=== PATIENT | female | born 1960 | race Caucasian/White ===

== ENCOUNTER 2016-07-28 08:39 | Inpatient (IN) | payer OTHER ==
[2016-07-15 13:42] LABS: MEAN CORPUS HGB CONC 32.4 g/dL (32.0-36.0); MEAN CORPUSCULAR VOLUME 83.3 fL (80-100); MEAN PLATELET VOLUME 9.3 fL (9.2-13.0); PLATELET COUNT 380 10/3/uL (150-400); RBC DISTRIBUTION WIDTH 14.9 % (12.0-16.0); WHITE BLOOD CELLS 9.8 10/3/uL (4.5-10.5)
[2016-07-15 13:45] LABS: HEMATOCRIT 39.8 % (36.0-48.0); HEMOGLOBIN 12.9 g/dL (12.0-16.0); RED CELL COUNT 4.78 10/6/uL (4.0-5.6)
[2016-07-15 14:28] LABS: SED RATE 29 MM/HR (0-20)
--- NOTE | ~2016-07-28 | DS ---
Discharge Summary [place] [id number] [facility] [place]. [address] NAME: JOSE RAUL GIRON : 58 STATUS : DIS IN PAT#: [id number] AGE: 55 ADM/REG DATE : 07/28/16 MR#: [id number] REPORT SERV DATE: 08/19/16 DICTATED BY: BRYAN HAGAN DATE: 08/18/16 REPORT STATUS : Draft TRANSCRIBED BY: YANELIS DATE: 08/18/16 Data Collection from hospitalization DISCHARGE DIAGNOSES: 1. Recurrent disc herniation and severe disk disease, L4 through S1. 2. Right-sided lumbar radiculopathy. 3. Diabetes. 4. Anxiety and depression. 5. Hypothyroidism. 6. Migraines. CONSULTATIONS: Eric Velasco M.D.. PROCEDURES PERFORMED: 1. Anterior approach retroperitoneal exposure of L4-L5, L5-S1 lumbosacral body on 07/28/2016. 2. First stage - L4-L5 and L5-S1 anterior lumbar interbody fusion; placement of Medtronic PEEK cage construct with screws passing through the PEEK cage into the L4-L5 and L5-S1 vertebral bodies; use of allograft bone matrix, neuromonitoring, bone morphogenic protein. Second stage - L4 through S1 open laminectomy and bilateral foraminotomies; L4 through S1 posterolateral fusion bilaterally; L4 through S1 posterior segmental spinal instrumentation using Medtronic pedicle screws; use of local morcellized autograft and allograft bone matrix, neuromonitoring, intraoperative O-arm CT scan with computer navigation on 07/28/2016. PATHOLOGY: Lumbar spine repair - fragmented bone cartilage and soft tissue. No evidence of an infectious or neoplastic process. MEDICATIONS: Artificial Tears instilled in the affected eye every hour while awake; Flexeril 10 mg twice a day; Colace 100 mg twice a day; erythromycin, apply to the affected eye every six hours as instructed; Neurontin 300 mg three times a day; Synthroid 112 mcg daily; Protonix 40 mg daily; Zoloft 200 mg daily; trazodone 150 mg at bedtime; Klonopin 1 mg at bedtime; Dulera two puffs via inhaler twice a day; Tylenol 650 mg every four hours as needed; Mylanta 30 mL as needed; Fioricet one to two tablets every eight hours as needed; Dulcolax 15 mg as needed; Valium 2 mg every four hours as needed, milk of magnesia 30 mL twice a day as needed; Percocet one tablet every four hours as needed; Phenergan 25 mg every six hours as needed; vitamin D 62806 units on Sundays; Breo Ellipta one puff via inhaler daily; and Flexeril 10 mg one tablet every eight hours as needed for spasm. CONDITION AT DISCHARGE: Stable. DISPOSITION: The patient was discharged to [facility] on a regular diet with activities as instructed. HOSPITAL COURSE: This is a 55-year-old female who had intractable back and lower extremity pain that had failed multiple attempts at conservative treatment. The patient had recurrent disk herniation and severe disk disease at L4 through S1 and right-sided lumbar radiculopathy. Treatment options were discussed and it was elected to proceed with surgical Discharge Summary [address] [address] NAME: JOSE RAUL GIRON : 58 STATUS : DIS IN PAT#: [id number] AGE: 55 ADM/REG DATE : 07/28/16 MR#: [id number] REPORT SERV DATE: 08/19/16 DICTATED BY: BRYAN HAGAN DATE: 08/18/16 REPORT STATUS : Draft TRANSCRIBED BY: YANELIS DATE: 08/18/16 intervention. She was admitted to the hospital at this time for further evaluation and treatment. Upon admission, she was taken to the operating room where she underwent the above-mentioned procedure by myself and Dr. Eric Velasco. She tolerated this well, and there were no complications. On postop day #1, she was evaluated by Physical Therapy. Her pain was controlled. She was stable neurologically. She had no headaches. The Conde catheter and HOME CARE LIAISON were discontinued. On postop day #2, she was doing well. She was passing some flatus. Her abdomen was soft. The drain was removed. Over the next couple of days, she was up sitting in a chair. She complained of mild tenderness to the anterior incisions site. She was instructed to paint the abdominal incision with Betadine daily. Discharge planning was performed. On 08/01/2016, she was alert and cooperative. She had no edema. Discharge instructions were given. Due to her improved and stable condition, she was discharged to [facility] with the above-stated instructions. Information collected by: Priscila Nunez I submit the above information as my discharge summary. CAIN/SHONDAL Bryan Hagan DO / [id number] CC: Bryan Hagan DO [facility]
--- NOTE | ~2016-07-28 | OP ---
Record Of Operation [facility] [address] [place]. [address] NAME: JOSE RAUL GIRON : 58 STATUS : ADM IN PAT#: [id number] AGE: 55 ADM/REG DATE : 07/28/16 MR#: [id number] REPORT SERV DATE: 07/28/16 DICTATED BY: ERIC BURCIAGA DATE: 07/28/16 REPORT STATUS : Draft TRANSCRIBED BY: MODL DATE: 07/28/16 DATE OF PROCEDURE: 07/28/2016 PREOPERATIVE DIAGNOSIS: Per Dr. Hagan. POSTOPERATIVE DIAGNOSIS: Per Dr. Hagan. SURGERY PERFORMED: Anterior approach retroperitoneal exposure of L4-5, 5-1 lumbosacral bodies. SURGEON: Eric Burciaga M.D. RADIO MECHANIC APPRENTICE: Nancy Nagy NP. DESCRIPTION OF PROCEDURE: The patient was placed under general endotracheal anesthesia. The abdomen was prepped and draped in a sterile fashion. An incision was made left of the midline beginning just at or above the umbilicus and carried down to the pubis. This was carried through skin and subcutaneous tissue. Anterior rectus fascia opened the left of the midline. The rectus muscle retracted laterally. Retroperitoneal space was entered using blunt dissection. Retroperitoneal contents were then retracted over to the right. Wet laparotomy sponges were placed over the retroperitoneal contents and Bookwalter retractor was used for the retraction. The L5-S1 space was exposed using the pusher. The sacral vessels doubly ligated with silk and divided. Continued use of the pusher and some with the cautery was done until the 5-1 space was fully exposed. The 4-5 space was exposed left of the iliac vessels. The vein was bluntly dissected, was triply ligated with silk and 1 Prolene suture and then divided. This enabled the iliac vein to be retracted over to the right. The L4-5 space was then exposed using blunt dissection. A needle placed into the position and this showed to be the appropriate level. The procedure turned over to Dr. Hagan. After he completed both areas of orthopedic procedure the area was visualized, hemostasis was achieved. Retroperitoneal contents returned to the natural position. The abdomen closed using #1 running PDS suture. A small catheter placed beneath the fascia for postoperative Marcaine infusion. Subcutaneous tissue closed with 3-0 Vicryl, skin closed with 4-0 Monocryl subcuticular suture. ESTIMATED BLOOD LOSS: 300 mL. COUNTS: The sponge and needle count correct x3. Fluoroscopy of the abdomen revealing no laparotomy sponges or instrumentation noted. MG/MODL Eric Burciaga M.D. Record Of Operation [address] [address] NAME: JOSE RAUL GIRON : 58 STATUS : ADM IN PAT#: [id number] AGE: 55 ADM/REG DATE : 07/28/16 MR#: [id number] REPORT SERV DATE: 07/28/16 DICTATED BY: ERIC BURCIAGA DATE: 07/28/16 REPORT STATUS : Draft TRANSCRIBED BY: YANELIS DATE: 07/28/16 / [id number] CC: Bryan Hagan, DO
--- NOTE | ~2016-07-28 | OP ---
Record Of Operation [facility] [address] [place]. [address] NAME: JOSE RAUL GIRON : 58 STATUS : ADM IN PAT#: [id number] AGE: 55 ADM/REG DATE : 07/28/16 MR#: [id number] REPORT SERV DATE: 07/28/16 DICTATED BY: BRYAN HAGAN DATE: 07/28/16 REPORT STATUS : Draft TRANSCRIBED BY: MODL DATE: 07/28/16 DATE OF PROCEDURE: 07/28/2016 PREOPERATIVE DIAGNOSES: Recurrent disk herniation and severe disk disease, L4 through S1; right-sided lumbar radiculopathy. POSTOPERATIVE DIAGNOSES: Recurrent disk herniation and severe disk disease, L4 through S1; right-sided lumbar radiculopathy. PROCEDURE: Two-stage procedure. FIRST STAGE: 1. L4-5 and L5-S1 anterior lumbar interbody fusion. 2. Placement of Medtronic PEEK cage construct with screws passing through the PEEK cage into the L4-5 and L5-S1 vertebral bodies. 3. Use of allograft bone matrix. 4. Neuromonitoring. 5. Bone morphogenic protein. SURGEONS: Surgeons for first stage of the procedure, Bryan Hagan DO and Eric Velasco M.D. from Vascular Surgery. He will dictate the approach and closure separately. SECOND STAGE OF THE PROCEDURE: 1. L4 through S1 open laminectomy and bilateral foraminotomies. 2. L4 through S1 posterolateral fusion bilaterally. 3. L4 through S1 posterior segmental spinal instrumentation using Medtronic pedicle screws. 4. Use of local morcellized autograft and allograft bone matrix, neuromonitoring, intraoperative O-arm CT scan with computer navigation. SURGEON: Bryan Hagan DO, on the second stage alone. ANESTHESIA: General. ESTIMATED BLOOD LOSS: 300 mL. COMPLICATIONS: Incidental durotomy. INDICATIONS: The patient is a pleasant 55-year-old with intractable back and lower extremity pain and paresthesias. Failed multiple attempts at conservative treatment. After discussion of risks and benefits, elected to proceed with surgery. PROCEDURE IN DETAIL: I identified the patient in the holding area. Consent was obtained. Went to the operating room. Underwent general anesthesia with endotracheal intubation. Prepped and draped in the usual sterile fashion. Operative safety pause was performed, then we proceeded. Dr. Velasco from Vascular Surgery performed the initial approach for the Record Of Operation [place] [id number] [place]. [address] NAME: JOSE RAUL GIRON : 58 STATUS : ADM IN PAT#: [id number] AGE: 55 ADM/REG DATE : 07/28/16 MR#: [id number] REPORT SERV DATE: 07/28/16 DICTATED BY: BRYAN HAGAN DATE: 07/28/16 REPORT STATUS : Draft TRANSCRIBED BY: MODL DATE: 07/28/16 anterior portion to the L4-S1 level. Spinal needle was placed at L4-5 and L5-S1 to verify operative level with lateral fluoroscopic image. A knife was used to perform an annulotomy at the L4-5 level. The disk space was prepared with a Aparicio elevator, curettes, and a rasp. A trial spacer was implanted and then Medtronic PEEK cage screw construct was placed at L4-5 with allograft bone matrix and bone morphogenic protein. Screws were placed through the cage and into the L4 and L5 vertebral bodies. Cover plate was applied. This was repeated again at the L5-S1 level. Closure performed by Dr. Velasco. Dressings applied. The patient turned to the prone position, prepped and draped in the usual sterile fashion. Operative safety pause was performed, and then we proceeded again. Midline longitudinal incision was made at L4-S1 taking down through the fascial layer. Paraspinous muscles elevated to the tips of transverse processes. Self-retaining retractors were placed. The O-arm registration frame was placed on spinous process. O-arm was brought in for intraoperative CT scan. Computer registration materials verified. Under computer guidance, L4-S1 pedicle screws were placed, L4 through S1. O-arm was brought back in to verify good placement of instrumentation. Rongeur was used to remove spinous process and underlying lamina at L4-S1. Kerrison removed remaining lamina and underlying ligamentum flavum, performed foraminotomies at L4-S1, freeing the L4-S1 nerve roots bilaterally. It did appear that there was a previous durotomy as there was minimal coverage over the dural sac at the L4-5 level, this was covered at the end of the case with Tisseel sealant. Rods were placed over the screws from L4-S1. Set screws were placed and final tightened. Locking mechanisms engaged. High- speed decorticating ric was used to decorticate the remaining bony surfaces posteriorly L4 through S1. Irrigation was performed. Hemostasis was achieved. Local morcellized autograft and allograft bone matrix packed over the decorticated surfaces, L4 through S1 bilaterally. Tisseel sealant placed over the dura. Subfascial drain placed. A gram of vancomycin powder sprinkled over the surgical wound. Layered closure performed. Sterile dressings applied. The patient was awoken and extubated, and taken to recovery room in stable condition. OPERATIVE FINDINGS: L4 to S1 disk disease and stenosis. No sustained neuromonitoring alerts and what appeared to be a prior durotomy covered with Tisseel sealant. JCE/MODL Bryan Hagan DO / [id number] CC: Bryan Hagan DO
--- NOTE | ~2016-07-28 | PREOPHP ---
PreOp History and Physical [place] [address] [place]. [address] NAME: JOSE RAUL GIRON : 58 STATUS : ADM IN PAT#: [id number] AGE: 55 ADM/REG DATE : 07/28/16 MR#: [id number] REPORT SERV DATE: 07/28/16 DICTATED BY: CHUYITA VALDEZ DATE: 07/28/16 REPORT STATUS : Draft TRANSCRIBED BY: YANELIS DATE: 07/28/16 CHIEF COMPLAINT: Back pain and right greater than left lower extremity pain and paresthesias. HISTORY OF PRESENT ILLNESS: The patient is a 55-year-old with intractable back and lower extremity pain, failed multiple attempts at conservative treatment. After discussion of risks and benefits, elected to proceed with surgical intervention. REVIEW OF SYSTEMS: She denies chest pain, shortness of breath, and bowel or bladder changes. ALLERGIES: SULFA. HOME MEDICATIONS: BuSpar, Fioricet, Risperdal, clonazepam, Flexeril, Synthroid, metformin, Neurontin, [place], pantoprazole, Phenergan, Protonix, Synthroid, trazodone, Voltaren gel, Zoloft. FAMILY HISTORY: Noncontributory. PAST MEDICAL HISTORY: Diabetes, depression, anxiety, hypothyroidism, migraines. PHYSICAL EXAMINATION: VITAL SIGNS: Height 5 feet 6 inches, weight 254, BMI 41. GENERAL: The patient is healthy appearing. No acute distress. PSYCH: Alert and oriented x3. Normal mood and affect. Gait is antalgic. VASCULAR: No extremity swelling. SPINE: Decreased lumbar motion. HEART: Regular rate and rhythm. LUNGS: Clear to auscultation bilaterally. ABDOMEN: Soft, nontender, nondistended with good bowel sounds. BREASTS AND RECTAL: Both deferred. NEUROLOGIC: Strength in the lower extremities remains intact with 5/5 strength with the exception of 4/5 for the right hip flexors and quadriceps. IMAGING: I have reviewed the MRI scan of the lumbar spine. The patient does have recurrent L4-S1 disk herniations, L4-S1 disk disease and stenosis. Prior diskectomy in 03/2011. ASSESSMENT: Recurrent disk herniation, right side L4 through S1, L4-S1 disk disease and stenosis, lumbar radiculopathy, failed conservative treatment to include physical therapy, epidural injections, medication and pain management. PLAN: The patient presents today for surgical intervention. Consent was obtained. All questions were answered. Ready to proceed with surgery. JCE/MODL PreOp History and Physical [address] [address] NAME: JOSE RAUL GIRON : 58 STATUS : ADM IN [facility]#: [id number] AGE: 55 ADM/REG DATE : 07/28/16 MR#: [id number] REPORT SERV DATE: 07/28/16 DICTATED BY: CHUYITA VALDEZ DATE: 07/28/16 REPORT STATUS : Draft TRANSCRIBED BY: YANELIS DATE: 07/28/16 Chuyita Valdez DO / [id number] CC: Chuyita Valdez DO
[~2016-07-28 08:39] MED LIST: AMIT25 PO; BREO ELLIPTA INH; EZFE 200200 MG PO; FLEX PO; FORTAMET500 MG PO; KLONO1 PO; LEVAQUIN750 MG PO; LEVOTHROID88 MCG PO; MAXALT10 MG PO; NEUR300 PO; NORCO1 TAB PO; P10; PR25 PO; PRAVAC PO; PROAIR HFA INH; PROTONIX PO; PROTONIXIV IV; SOMATAB PO; SYN125 PO; TOPAMAX25 PO; TRAZODONE150 MG PO; VITD PO; ZOFRANODT8 PO; ZOL100 PO
[2016-07-28 16:55] LABS: BASOPHILS 0.1 %; BASOPHILS ABSOLUTE 0.02 10/3/uL (0.0-0.16); EOSINOPHILS 0 %; EOSINOPHILS ABSOLUTE 0.01 10/3/uL (0.0-0.53); HEMOGLOBIN 10.8 g/dL (12.0-16.0); IMMATURE GRANULOCYTES 0.6 %; IMMATURE GRANULOCYTES ABSOLUTE 0.12 10/3/uL (0.0-0.11); LYMPHOCYTES 7.2 %; LYMPHOCYTES ABSOLUTE 1.45 10/3/uL (0.67-4.30); MEAN CORPUSCULAR HEMOGLOB 26.2 pg (26.0-34.0); MEAN CORPUSCULAR VOLUME 81.8 fL (80-100); MEAN PLATELET VOLUME 9.4 fL (9.2-13.0); MONOCYTES 2.1 %; MONOCYTES ABSOLUTE 0.42 10/3/uL (0.21-1.20); NEUTROPHILS ABSOLUTE 18.23 10/3/uL (2.02-8.40); PLATELET COUNT 347 10/3/uL (150-400); RED CELL COUNT 4.12 10/6/uL (4.0-5.6)
[2016-07-28 16:57] LABS: HEMATOCRIT 33.7 % (36.0-48.0); MANUAL DIFF NO %; WHITE BLOOD CELLS 20.3 10/3/uL (4.5-10.5)
[2016-07-28 17:04] LABS: BUN (BLOOD UREA NITROGEN) 10 MG/DL (6-23); CHLORIDE, SERUM 109 MMOL/L (96-112); CO2 (CARBON DIOXIDE) 26 MMOL/L (24-34); GFR AFRICAN AMERICAN 73 ML/MIN (>=60); GFR NON AFRICAN AMERICAN 63 ML/MIN (>=60); POTASSIUM, SERUM 3.8 MMOL/L (3.5-5.3); SODIUM, SERUM 143 MMOL/L (135-148)
[2016-07-28 17:05] LABS: GLUCOSE, SERUM 228 MG/DL (60-99)
[2016-07-29 05:19] LABS: BASOPHILS 0 %; EOSINOPHILS 0 %; HEMOGLOBIN 9.2 g/dL (12.0-16.0); IMMATURE GRANULOCYTES 0.3 %; IMMATURE GRANULOCYTES ABSOLUTE 0.05 10/3/uL (0.0-0.11); LYMPHOCYTES 8.2 %; LYMPHOCYTES ABSOLUTE 1.21 10/3/uL (0.67-4.30); MEAN CORPUS HGB CONC 32.2 g/dL (32.0-36.0); MEAN CORPUSCULAR HEMOGLOB 27.1 pg (26.0-34.0); MEAN CORPUSCULAR VOLUME 84.1 fL (80-100); MEAN PLATELET VOLUME 9.5 fL (9.2-13.0); MONOCYTES 8.9 %; MONOCYTES ABSOLUTE 1.31 10/3/uL (0.21-1.20); NEUTROPHILS 82.6 %; NEUTROPHILS ABSOLUTE 12.11 10/3/uL (2.02-8.40); PLATELET COUNT 285 10/3/uL (150-400); RBC DISTRIBUTION WIDTH 15.1 % (12.0-16.0); WHITE BLOOD CELLS 14.7 10/3/uL (4.5-10.5)
[2016-07-29 05:22] LABS: HEMATOCRIT 28.6 % (36.0-48.0); MANUAL DIFF NO %
[2016-07-29 05:39] LABS: BUN (BLOOD UREA NITROGEN) 10 MG/DL (6-23); CALCIUM, SERUM 8.1 MG/DL (8.5-10.4); CHLORIDE, SERUM 110 MMOL/L (96-112); CO2 (CARBON DIOXIDE) 27 MMOL/L (24-34); CREATININE 0.76 MG/DL (0.55-1.02); GFR AFRICAN AMERICAN 102 ML/MIN (>=60); GFR NON AFRICAN AMERICAN 88 ML/MIN (>=60); GLUCOSE, SERUM 139 MG/DL (60-99); POTASSIUM, SERUM 4.7 MMOL/L (3.5-5.3); SODIUM, SERUM 145 MMOL/L (135-148)
[2016-12-10] MEDS ORDERED: MERIBIN5 MG PO (11:21)
[2016-12-14] MEDS ORDERED: ERYTHROMYCIN O3.5 G1 OPH (14:47)
[2016-12-14] MEDS ORDERED: DIL2TAB PO (14:47)
[2016-12-14] MEDS ORDERED: C25 PO (14:48)
[2016-12-14] MEDS ORDERED: ZOFRAN4 PO (14:49)
[2016-12-19] MEDS ORDERED: DIL2TAB PO (22:53)
[2016-12-19] MEDS ORDERED: C25 PO (22:54)
[2016-12-19] MEDS ORDERED: ZOFRAN4 PO (22:54)
[2016-12-19] MEDS ORDERED: KLONO1 PO (22:55)
[2016-12-19] MEDS ORDERED: ZOL100 PO (22:55)
[2016-12-19] MEDS ORDERED: SYN112 PO (22:56)
[2016-12-19] MEDS ORDERED: FLEX PO (22:56)
[2016-12-19] MEDS ORDERED: NEUR300 PO (22:58)
[2016-12-19] MEDS ORDERED: PROTONIX PO (22:58)
[2016-12-19] MEDS ORDERED: BIOTIN10 MG PO (22:59)
[2016-12-19] MEDS ORDERED: MAXIMUM D3 PO (22:59)
[2016-12-19] MEDS ORDERED: MIRALAX POWDER1 PKT PO (23:01)
[2016-12-19] MEDS ORDERED: BEN25 PO (23:01)
[2017-02-22] MEDS ORDERED: BIOTIN10 MG PO (01:44)
[2017-02-22] MEDS ORDERED: MAXIMUM D3 PO (01:45)
[2017-02-22] MEDS ORDERED: KLONO1 PO (01:45)
[2017-02-22] MEDS ORDERED: FLEX PO (01:46)
[2017-02-22] MEDS ORDERED: BEN25 PO (01:46)
[2017-02-22] MEDS ORDERED: NEUR300 PO (01:46)
[2017-02-22] MEDS ORDERED: LEVOTHYROXIN112 MCG PO (01:47)
[2017-02-22] MEDS ORDERED: ZOFRAN4 PO (01:47)
[2017-02-22] MEDS ORDERED: PROTONIX PO (01:47)
[2017-02-22] MEDS ORDERED: MIRALAX POWDER1 PKT PO (01:48)
[2017-02-22] MEDS ORDERED: ZOL100 PO (01:49)
[2017-02-22] MEDS ORDERED: NORCO1 TA1 PO (01:50)
[2017-02-22] MEDS ORDERED: PROAIR HFA INH (01:51)
[2017-02-28] MEDS ORDERED: ROCEPH IV (14:12)
[2017-02-28] MEDS ORDERED: DSS PO (14:13)
[2017-02-28] MEDS ORDERED: VITD PO (14:14)
[2017-02-28] MEDS ORDERED: PEP20 PO (14:15)
[2017-02-28] MEDS ORDERED: FESO4 PO (14:16)
[2017-02-28] MEDS ORDERED: NORCO1 TA1 PO (14:17)
[2017-02-28] MEDS ORDERED: C25 PO (14:18)
== END 2016-08-01 18:36 | DRG 455 ==
LOC: SDC/OF 08:39 → PACU 16:42 → 3SO 21:05
PROVIDERS: Orthopaedic Surgery; Surgery Vascular Surgery
PROC: 4A11X4G Monitoring of Peripheral Nervous Electrical Activity, Intraoperative, External Approach (ICD-10-PCS; 2016-07-28)
PROC: 0SG00A0 Fusion of Lumbar Vertebral Joint with Interbody Fusion Device, Anterior Approach, Anterior Column, Open Approach (ICD-10-PCS; principal; 2016-07-28 11:00)
PROC: 0SG00Z1 (ICD-10-PCS; 2016-07-28 11:00)
PROC: 0SG30A0 Fusion of Lumbosacral Joint with Interbody Fusion Device, Anterior Approach, Anterior Column, Open Approach (ICD-10-PCS; 2016-07-28 11:00)
PROC: 0SG30Z1 (ICD-10-PCS; 2016-07-28 11:00)
DX: M51.16 Intervertebral disc disorders with radiculopathy, lumbar region (principal); E03.9 Hypothyroidism, unspecified
CPT/HCPCS: 36415; 80048; 82962; 85025; 85027; 85652; 86140; 86850; 86900; 86901; 86920; 87641; 88304; 88311; 93005; 94640; 97116-GP; 97162-GP; 97530-GP; A9270-GY; C1713; C1776; J0690; J1170; J1644; J2250; J2270; J2370; J2405; J2710; J3010; J3370; P9045